=== PATIENT | female | born 1955 | race Caucasian/White ===

== ENCOUNTER 2018-12-30 01:51 | Outpatient (CLI) | payer SELFPAY ==
[~2018-12-30 01:51] MED LIST: AMLO2.5T2 PO; ASPI-1264 PO; CITA40TA11 PO; TRIA1CAP6 PO; WALKERFR
[2018-12-30 08:37] LABS: HEMOGLOBIN A1C 5.7 % (4.5-6.2)
[2018-12-30 08:53] LABS: CHOL/HDL RATIO 3.11 (0.00-4.99)
== END 2018-12-30 23:59 | disposition home or self-care (01) ==
LOC: HW HEART 01:51
DX: Z13.6 Encounter for screening for cardiovascular disorders (principal); R94.31 Abnormal electrocardiogram [ECG] [EKG]; I10 Essential (primary) hypertension; J45.909 Unspecified asthma, uncomplicated
CPT/HCPCS: 36415